=== PATIENT | female | born 1985 | race Caucasian/White ===

== ENCOUNTER → 2019-08-07 10:05 | Outpatient (CLI) | payer OTHER, SELFPAY ==
--- NOTE | 2019-08-07 10:06 | DI.US.S_ITS ---
PROCEDURE: US SOFT TISSUE HEAD AND NECK INDICATIONS: NECK LUMPS TECHNIQUE: Real-time scanning was performed of the neck region of interest, with image documentation. COMPARISON: None. FINDINGS: An area of multiple posterior neck palpable abnormalities, there are multiple lymph nodes including a right superior lymph node measuring 1.5 x 1.0 x 1.4 cm with minimal increased vascularity. Additional right inferior lymph node measuring 1.7 x 0.9 x 1.3 cm demonstrating normal vascularity. Left-sided lymph node measuring 2.6 x 0.8 x 1.9 cm with normal vascularity. All 3 demonstrate no remaining visualized fatty hilum. IMPRESSION: Multiple enlarged lymph nodes in the area of palpable abnormalities, technically non-specific etiology. These could be reactive versus metastatic or inflammatory/granulomatous. Recommend close clinical correlation and management. Dictated by: Cesar Palmer M.D. on 08/07/2019 at 15:53 Approved by: Cesar Palmer M.D. on 08/07/2019 at 15:56
== END ==
PROVIDERS: PCP Nurse Practitioner Family; Referring Provider Nurse Practitioner Family; Visit Provider Nurse Practitioner Family
DX: R59.0 Localized enlarged lymph nodes (principal)
CPT/HCPCS: 76536

== ENCOUNTER → 2019-08-08 10:30 | Outpatient (CLI) | payer OTHER, SELFPAY ==
[2019-08-08 11:09] LABS: Add Manual Diff / Slide Review NO; Basophils Absolute Auto 100 /uL (0-100); Basophils Percent Auto 0.8 % (0-2); Eosinophils Absolute Auto 200 /uL (0-450); Hematocrit 39.3 % (36-46); Hemoglobin 13.4 g/dL (12.0-16.0); Lymphocytes Absolute Auto 3100 /uL (1100-4500); Lymphocytes Percent Auto 24.6 % (25-40); Mean Corpuscular HGB Conc 34.2 % (30-36); Mean Corpuscular Hemoglobin 29.4 PG (26-34); Mean Corpuscular Volume 86.2 fL (80-100); Monocytes Absolute Auto 500 /uL (0-900); Monocytes Percent Auto 3.6 % (3-14); Neutrophils Absolute Auto 8700 /uL (1500-7000); Platelet Count 405 X10^3/uL (150-400); Red Blood Cell Count 4.56 X10^6/uL (4.0-5.2); Red Cell Distribution Width 13.4 % (11.6-14.8); White Blood Cell Count 12.6 X10^3/uL (4.5-11.0)
[2019-08-08 11:39] LABS: Alanine Aminotransferase 62 IU/L (<35); Albumin 3.9 g/dL (3.5-5.0); Albumin Globulin Ratio 1.1 (1.0-2.8); Alkaline Phosphatase 78 U/L (38-126); Aspartate Aminotransferase 30 IU/L (14-36); BUN Creatinine Ratio 21.5 (6-22); Bilirubin Total 0.4 mg/dL (0.2-1.3); Blood Urea Nitrogen 14 mg/dL (7-17); Calcium 9.4 mg/dL (8.4-10.2); Carbon Dioxide 28 mmol/L (22-32); Chloride 100 mmol/L (98-107); Estimated Glomerular Filt Rate > 60.0 mL/min (>60); Globulin 3.6 g/dL (1.7-4.1); Glucose 262 mg/dL (70-100); HEMOLYSIS < 15 (0-50); Potassium 4.4 mmol/L (3.4-5.1); Sodium 134 mmol/L (137-145); Total Protein 7.5 g/dL (6.3-8.2)
[2019-08-09 17:12] LABS: Hemoglobin A1C% w Est Avg Glu 7.6 % (4.0-6.0)
== END ==
PROVIDERS: PCP Nurse Practitioner Family; Referring Provider Nurse Practitioner Family; Visit Provider Nurse Practitioner Family
DX: Z00.00 Encounter for general adult medical examination without abnormal findings (principal); R59.0 Localized enlarged lymph nodes
CPT/HCPCS: 36415; 80053; 83036; 85025

== ENCOUNTER → 2019-08-14 13:32 | Outpatient (CLI) | payer OTHER, SELFPAY ==
--- NOTE | 2019-08-14 13:33 | DI.RAD.S_ITS ---
PROCEDURE: XR CHEST 2V INDICATIONS: lymphadenopathy TECHNIQUE: 2 views of the chest were acquired. COMPARISON: None. FINDINGS: Surgical changes and devices: None. Lungs and pleura: Lungs are clear. No pleural effusions or pneumothorax. Mediastinum: Mediastinal contours are normal. Heart size is normal. Bones and chest wall: No suspicious bony abnormalities. Soft tissues appear unremarkable. IMPRESSION: No evidence acute pulmonary process. Dictated by: Jeb Costello M.D. on 08/14/2019 at 14:02 Approved by: Jeb Costello M.D. on 08/14/2019 at 14:02
--- NOTE | 2019-08-14 13:58 | DI.CT.S_ITS ---
PROCEDURE: CT SOFT TISSUE NECK W CON INDICATIONS: lymphadenopathy TECHNIQUE: After the administration of intravenous contrast, 3.0 mm axial sections acquired from the sella to the aortic arch. Additional oblique axial 3.0 mm sections acquired through the pharynx. 3 mm thick coronal and sagittal reformats were generated. For radiation dose reduction, the following was used: automated exposure control. COMPARISON: None. FINDINGS: Image quality: Excellent. Lymph nodes: Borderline/mildly enlarged bilateral level II and level V cervical lymph nodes. There is symmetric bilateral appearance. Enlarged right suboccipital lymph node noted on image 36/7. Vessels: Visualized vasculature appears patent. Neck spaces: There is bilaterally symmetric appearing mild enlargement of the palatine tonsils. The oropharynx, nasopharynx, and pharynx demonstrate no mucosal lesions. The vocal cords, false vocal cords, pyriform sinuses, epiglottis, vallecula, and tongue base all appear normal. Extramucosal spaces appear unremarkable. Glands: The parotid and submandibular glands appear normal. Thyroid gland negative. Miscellaneous: Visualized brain and orbits appear normal. Lung apices appear clear. Superficial soft tissues appear normal. Bones: No suspicious bony lesions. Visualized sinuses and mastoids appear unremarkable. IMPRESSION: Bilateral borderline/mildly enlarged bilateral level II and level V cervical lymph nodes, with symmetric appearance. Prominent right suboccipital lymph node. Findings are technically nonspecific and age unknown. Please correlate clinically. Recommend clinical management Prominent tonsillar pillar enlargement raising the possibility of acute or inflammatory tonsillitis although recommend clinical correlation and direct visual inspection Dictated by: Cesar Palmer M.D. on 08/14/2019 at 14:02 Approved by: Cesar Palmer M.D. on 08/14/2019 at 14:10
== END ==
PROVIDERS: PCP Nurse Practitioner Family; Referring Provider Nurse Practitioner Family; Visit Provider Nurse Practitioner Family
DX: R59.0 Localized enlarged lymph nodes (principal); J35.1 Hypertrophy of tonsils; R73.9 Hyperglycemia, unspecified
CPT/HCPCS: 70491; 71046; Q9967

== ENCOUNTER → 2019-10-11 11:56 | Outpatient (CLI) | payer OTHER, SELFPAY ==
--- NOTE | 2019-10-11 12:00 | DI.RAD.S_ITS ---
PROCEDURE: XR FINGER RT MIN 2V INDICATIONS: right finger pain, distal joint TECHNIQUE: AP hand, 2 views of the fifth finger(s) acquired. COMPARISON: None. FINDINGS: Bones: No fractures or dislocations. No suspicious bony lesions. Soft tissues: No suspicious soft tissue calcifications. IMPRESSION: Trauma to the fifth digit is not seen. There is no appreciable degenerative change either. Dictated by: Destin Schulte M.D. on 10/11/2019 at 12:53 Approved by: Destin Schulte M.D. on 10/11/2019 at 12:54
== END ==
PROVIDERS: PCP Nurse Practitioner Family; Referring Provider Nurse Practitioner Family; Visit Provider Nurse Practitioner Family
DX: M79.644 Pain in right finger(s) (principal)
CPT/HCPCS: 73140

== ENCOUNTER → 2019-11-16 10:21 | Outpatient (CLI) | payer OTHER, SELFPAY ==
[2019-11-16 10:39] LABS: Add Manual Diff / Slide Review NO; Basophils Absolute Auto 100 /uL (0-100); Basophils Percent Auto 0.7 % (0-2); Eosinophils Absolute Auto 300 /uL (0-450); Eosinophils Percent Auto 2.5 % (2-4); Hematocrit 38.6 % (36-46); Hemoglobin 13.7 g/dL (12.0-16.0); Lymphocytes Absolute Auto 2800 /uL (1100-4500); Lymphocytes Percent Auto 26.3 % (25-40); Mean Corpuscular HGB Conc 35.6 % (30-36); Mean Corpuscular Hemoglobin 30.3 PG (26-34); Mean Corpuscular Volume 85.2 fL (80-100); Monocytes Absolute Auto 400 /uL (0-900); Monocytes Percent Auto 3.5 % (3-14); Neutrophils Absolute Auto 7100 /uL (1500-7000); Platelet Count 422 X10^3/uL (150-400); Red Blood Cell Count 4.53 X10^6/uL (4.0-5.2); Red Cell Distribution Width 13.1 % (11.6-14.8); White Blood Cell Count 10.6 X10^3/uL (4.5-11.0)
[2019-11-16 10:59] LABS: Hemoglobin A1C% w Est Avg Glu 7.4 % (4.0-6.0)
[2019-11-16 11:13] LABS: Erythrocyte Sedimentation Rate 53 MM/HR (0-20)
[2019-11-16 11:32] LABS: Alanine Aminotransferase 51 IU/L (<35); Albumin 3.9 g/dL (3.5-5.0); Albumin Globulin Ratio 1.1 (1.0-2.8); Alkaline Phosphatase 82 U/L (38-126); Aspartate Aminotransferase 33 IU/L (14-36); BUN Creatinine Ratio 26.7 (6-22); Bilirubin Total 0.5 mg/dL (0.2-1.3); Bilirubin Unconjugated 0.4 mg/dL (0.0-1.1); Blood Urea Nitrogen 16 mg/dL (7-17); Calcium 9.7 mg/dL (8.4-10.2); Carbon Dioxide 26 mmol/L (22-32); Chloride 105 mmol/L (98-107); Estimated Glomerular Filt Rate > 60.0 mL/min (>60); Globulin 3.6 g/dL (1.7-4.1); Glucose 171 mg/dL (70-100); HEMOLYSIS < 15 (0-50); Potassium 4.4 mmol/L (3.4-5.1); Sodium 138 mmol/L (137-145); Total Protein 7.5 g/dL (6.3-8.2)
[2019-11-16 11:41] LABS: Rheumatoid Factor < 8.6 IU/mL (<12.0)
[2019-11-20 07:04] LABS: CCP Antibodies IgG/IgA 4 units (0-19)
[2019-11-20 13:09] LABS: ANA Screen, IFA Negative (.)
[2019-11-25 10:08] LABS: HLA B27 Negative (.)
== END ==
PROVIDERS: PCP Nurse Practitioner Family; Referring Provider Nurse Practitioner Family; Visit Provider Nurse Practitioner Family
DX: L40.9 Psoriasis, unspecified (principal); M25.50 Pain in unspecified joint; R74.0 Nonspecific elevation of levels of transaminase and lactic acid dehydrogenase [LDH]; E87.1 Hypo-osmolality and hyponatremia; D72.829 Elevated white blood cell count, unspecified; E11.9 Type 2 diabetes mellitus without complications
CPT/HCPCS: 36415; 80048; 80076; 81374; 83036; 85025; 85651; 86038; 86200; 86430

== ENCOUNTER 2019-12-09 04:05 | Emergency (ER) | payer OTHER, SELFPAY ==
[2019-12-09 04:10] VITALS: BP 161/98; PULSE 110; RESP 20; TEMP 36.6; O2SAT 99; BMI 49.1
--- NOTE | 2019-12-09 04:13 | ED_ITS ---
HPI - General Adult General Chief complaint: Dental/Oral Stated complaint: tonsils are swollen and painful Time Seen by Provider: 12/09/19 04:11 Source: patient Mode of arrival: Ambulatory Limitations: no limitations History of Present Illness HPI narrative: 34-year-old female here for evaluation of a sore throat. States symptoms have been going on for the past 3 days. No fevers. No cough. No problems breathing. His painful for her to swallow but she is able to tolerate secretions. No ear pain. No rashes. Has tried Tylenol and ibuprofen for her symptoms without much improvement. Related Data Home Medications Medication Instructions Recorded Confirmed metformin 500 mg tablet 500 mg PO BID 09/26/18 11/15/19 Previous Rx's Medication Instructions Recorded norethindrone 1 mg-ethinyl 1 tab PO QDAY #168 tab 06/03/19 estradiol 35 mcg tablet clobetasol 0.05 % shampoo 1 applictn TOP DAILY #118 ml 08/27/19 diclofenac sodium 1 % topical gel 2 gram TOP QID #100 gram 11/15/19 azithromycin See Rx Instructions .ROUTE 12/09/19 .COMPLEX #6 tab Allergies Allergy/AdvReac Type Severity Reaction Status Date / Time penicillin G Allergy Mild RASH Verified 12/09/19 04:12 Review of Systems Constitutional Constitutional: Denies fever(s) Eyes Eyes: Denies change in vision ENT Ears, Nose, Mouth, and Throat: Denies change in voice, Denies dental pain, Reports dysphagia, Denies vertigo, Denies dizziness, Denies otalgia, Reports hoarseness, Reports sore throat, Reports throat swelling and Denies tongue swelling Cardiovascular Cardiovascular: Denies dyspnea Respiratory Respiratory: Denies cough and Denies dyspnea Gastrointestinal Gastrointestinal: Reports dysphagia Integumentary/Breasts Skin/Breast: Denies rash Neurologic Neurologic: Denies behavioral changes, Denies vertigo and Denies dizziness Psychiatric Psychiatric: Denies behavioral changes Hematologic/Lymphatic Hematologic/Lymphatic: Denies easy bleeding and Denies easy bruising Allergic/Immunologic Allergic/Immunologic: Reports throat swelling and Denies tongue swelling Patient History Medical History Allergies (Chronic ~2017) Asthma (Chronic) Cervical lymphadenopathy (Acute 10/2018) Chicken pox (Resolved ~1989) Complex cyst of right ovary (Acute) Irregular menstrual cycle (Acute) Joint pain (Acute) Nodule of soft tissue (Acute 10/2018) Pain in right finger(s) (Acute) Type 2 diabetes mellitus (Acute) Surgical History (Updated 10/09/19 @ 19:53 by Brielle Richmond) History of section, low transverse (Resolved ~2012) History of left oophorectomy (Resolved) Status post laparoscopy (06/14/15) Status post laparotomy (01/14/16) Status post ovarian cystectomy (01/14/16) Family History (Updated 10/09/19 @ 19:54 by Brielle Richmond) Father Cancer Hypertension Grandmother Cancer Grandfather Diabetes mellitus Grandmother Cancer Social History Smoking Status: Current every day smoker (06/01-05/30 ppd) Tobacco: How many years used: 20 second hand exposure: Yes (works in a [employer]) alcohol intake: current (2x/month) substance use type: does not use Smoking Status: Current every day smoker (06/01-05/30 ppd) Exam Initial Vital Signs Initial Vital Signs: Vital Signs Temperature 98 F 12/09/19 04:10 Pulse Rate 110 H 12/09/19 04:10 Respiratory Rate 20 12/09/19 04:10 Blood Pressure 161/98 H 12/09/19 04:10 Pulse Oximetry 99 12/09/19 04:10 Const General: cooperative and comfortable Limitations: mental status not altered HENMT Head: normal to inspection and normocephalic Ears: TM's normal bilaterally Nose: external nose normal Face and sinus: normal facial exam Mouth: lip normal, tongue normal, moist mucous membranes, No drooling, malodorous breath and No trismus Teeth and gingiva: dentition normal Throat: uvula midline, abnormal tonsil bilaterally erythema and exudates, no peritonsillar masses, uvula not displaced and no uvular edema Neck Lymphatic: lymphadenopathy Resp Effort & Inspection: normal respiratory effort Auscultation: clear to auscultation bilaterally Cardio Rate: regular rate Rhythm: regular rhythm Skin Lesions: no lesions Rashes: no rashes Extrem General: capillary refill normal Psych Appearance: grossly normal and well kempt Course Orders Ordered: ED Orders 12/09/19 04:15 Throat Culture Stat Discontinued Medications Dexamethasone (Decadron) 16 mg PO NOW ONE Stop: 12/09/19 04:20 Last Admin: 12/09/19 04:29 Dose: 16 mg Documented by: GLADIS Vital Signs Vital signs: Vital Signs - 8 hr 12/09/19 04:10 12/09/19 05:00 12/09/19 05:03 Temperature 98 F Pulse Rate 110 H 72 Respiratory Rate 20 16 Blood Pressure 161/98 H 141/83 H 141/83 H Pulse Oximetry 99 99 Medical Decision Making Lab Data Labs: Point of Care Testing Rapid Strep A Negative Point of care testing: Point of Care Testing Rapid Strep A Negative MDM Narrative Medical decision making narrative: Patient does have 3/4 Centor criteria. She is only lacking a fever. Her rapid strep was negative however her physical exam is consistent with strep throat. She has malodorous breath consistent with strep. Bilateral with right greater than left tonsillar exudates. Had a discussion with her regarding this. A throat culture was obtained. Informed her that we could wait until the throat culture results before treating with any antibiotics. We did discuss that this potentially is a viral infection and would not improve with antibiotics. We also discussed the option of treating her presumptively for strep throat. Downside of this would be is that she received antibiotics that she does not need. Physical exam today is not consistent with a peritonsillar abscess. Low suspicion for retropharyngeal abscess. Dentition is unremarkable. After discussion patient opted to be placed on antibiotics. A prescription was electronically transmitted to the pharmacy of her choice. We discussed return precautions and follow-up instructions. She expressed understanding and agreement. She was also given Decadron for symptom control. Discharge Plan Departure Patient Disposition: Home Clinical Impression: Pharyngitis Qualifiers: Pharyngitis/tonsillitis etiology: unspecified etiology Qualified Code(s): J02.9 - Acute pharyngitis, unspecified Discharge Date/Time: 12/09/19 05:03 Instructions: Sore Throat Activity Restrictions/Additional Instructions: We are treating you today for presumed strep throat. A prescription for antibiotics was electronically transmitted to the [facility] in [place]. You can take Tylenol and/or ibuprofen for any discomfort or fevers.. Recommend soft diet and drink plenty of fluids. Recommend that you wash her hands frequently. Keep all of your scheduled medical appointments. Return to the emergency d epartment for any new or worsening symptoms Prescriptions: New azithromycin 250 mg tablet See Rx Instructions .ROUTE .COMPLEX Qty: 6 RF: 0 No Action [facility]o-Novum () 1-35 mg-mcg tablet 1 tab PO QDAY Qty: 168 RF: 0 metformin 500 mg tablet 500 mg PO BID RF: 0 clobetasol 0.05 % shampoo 1 applictn TOP DAILY Qty: 118 RF: 1 diclofenac sodium 1 % gel 2 gram TOP QID Qty: 100 RF: 0 Referrals: Manjit Hudson ARNP [Primary Care Provider] -
[2019-12-09] MEDS: dexAMETHasone 4 MG TABLET 16 MG PO (04:29)
[2019-12-09 05:00] VITALS: BP 141/83; PULSE 72; RESP 16; O2SAT 99
[2019-12-09 05:03] VITALS: BP 141/83
== END 2019-12-09 05:03 | disposition home or self-care (01) ==
PROVIDERS: Emergency Provider Emergency Medicine; PCP Nurse Practitioner Family
DX: J02.9 Acute pharyngitis, unspecified (principal)
CPT/HCPCS: 87070; 87077; 87147; 87880; 99283

== ENCOUNTER → 2019-12-11 15:12 | Outpatient (CLI) | payer OTHER, SELFPAY ==
[2019-12-11 15:36] LABS: Add Manual Diff / Slide Review NO; Basophils Absolute Auto 100 /uL (0-100); Eosinophils Absolute Auto 300 /uL (0-450); Eosinophils Percent Auto 2.8 % (2-4); Hemoglobin 12.2 g/dL (12.0-16.0); Lymphocytes Absolute Auto 4200 /uL (1100-4500); Lymphocytes Percent Auto 34.1 % (25-40); Mean Corpuscular Hemoglobin 29.1 PG (26-34); Mean Corpuscular Volume 85.7 fL (80-100); Monocytes Absolute Auto 600 /uL (0-900); Monocytes Percent Auto 4.7 % (3-14); Neutrophils Absolute Auto 7000 /uL (1500-7000); Neutrophils Percent Auto 57.4 % (50-75); Platelet Count 485 X10^3/uL (150-400); White Blood Cell Count 12.2 X10^3/uL (4.5-11.0)
[2019-12-11 15:53] LABS: Alanine Aminotransferase 23 IU/L (<35); Albumin 3.8 g/dL (3.5-5.0); Alkaline Phosphatase 79 U/L (38-126); Aspartate Aminotransferase 19 IU/L (14-36); BUN Creatinine Ratio 35.5 (6-22); Bilirubin Total 0.4 mg/dL (0.2-1.3); Blood Urea Nitrogen 22 mg/dL (7-17); C-Reactive Protein Quant 6.4 mg/dL (<1.0); Calcium 9.1 mg/dL (8.4-10.2); Carbon Dioxide 27 mmol/L (22-32); Chloride 103 mmol/L (98-107); Estimated Glomerular Filt Rate > 60.0 mL/min (>60); Globulin 3.8 g/dL (1.7-4.1); Glucose 168 mg/dL (70-100); HEMOLYSIS < 15 (0-50); Potassium 3.8 mmol/L (3.4-5.1); Sodium 136 mmol/L (137-145); Total Protein 7.6 g/dL (6.3-8.2)
[2019-12-11 15:56] LABS: Erythrocyte Sedimentation Rate 67 MM/HR (0-20)
== END ==
PROVIDERS: PCP Nurse Practitioner Family; Referring Provider Nurse Practitioner Family; Visit Provider Nurse Practitioner Family
DX: Z00.00 Encounter for general adult medical examination without abnormal findings (principal); D72.829 Elevated white blood cell count, unspecified; R70.0 Elevated erythrocyte sedimentation rate; R79.82 Elevated C-reactive protein (CRP)
CPT/HCPCS: 36415; 80053; 85025; 85651; 86140

== ENCOUNTER → 2020-01-05 15:14 | Outpatient (CLI) | payer OTHER, SELFPAY ==
[2020-01-06 23:07] LABS: COVID19 Sendout Not Detected (Not Detect)
== END ==
PROVIDERS: PCP Nurse Practitioner Family; Visit Provider Physician Assistant
DX: Z11.59 Encounter for screening for other viral diseases (principal)
CPT/HCPCS: 87635

== ENCOUNTER 2020-01-08 09:45 | Day surgery (SDC) | payer OTHER, SELFPAY ==
[2020-01-03 09:41] VITALS: BMI 49.1
[2020-01-08] VITALS (8 sets, daily range): BP systolic 95–125; BP diastolic 54–82; PULSE 66–90; RESP 12–16; TEMP 35.7–36.8; O2SAT 94–99; BMI 49.1
--- NOTE | 2020-01-08 | PATH_ITS ---
[facility] Accession Number: [id number] . 01 Material submitted: . lymph node - CERVICAL LYMPH NODE . 01 Diagnosis: Cervical Lymph Node, Excision: Benign lymph node with reactive hyperplasia, see microscopic description. Negative for Hodgkin or non-Hodgkin lymphoma. Negative for carcinoma. [facility] 01/15/2020 1437 Local . 01 Comment: Reactive paracortical hyperplasia is a non-specific finding and is often associated with viral infection (EBV, CMV, etc.). It is also associated with drug/vaccine reaction and also seen in association with dermatopathic lymphadenopathy, etc. There is no evidence of malignancy. . Clinical correlation and also correlation with additional (if any) laboratory tests also recommended. . As part of ongoing quality process engineer, this case was also reviewed by Dr. Cynthia Douglas, who agrees with the interpretation. . 01 Electronically signed: . Oc Mccracken MD, Pathologist NPI- [id number] . 01 Gross description: . Received in formalin, labeled with the patient's name, MRN and cervical lymph node, is a 1.2 cm in greatest dimension yellow-rojas fatty possible lymph node. The specimen is serially sectioned and entirely submitted in cassette A1. (SD/cmc10 [id number]) /MRV 01/09/2020 1042 Local . 01 Microscopic: . Microscopic examination of the lymph node reveals reactive changes in the form of predominantly paracortical hyperplasia and to a lesser extent, follicular and sinusoidal hyperplasia. Follicular hyperplasia with reactive germinal centers are noted and expansion of paracortical areas with mixed lymphoid infiltrates composed of small and larger lymphocytes (immumoblasts), admixed with plasma cells, eosinophils, neutrophils, and histiocytes. . Well-formed granulomas are not appreciated. . To better evaluate the lymphocyte composition, a panel of immunostains is performed with the following results: . CD3: T-lymphocytes positive. CD5: T-lymphocytes positive (negative for aberrant coexpression on the B-lymphocytes). CD20: B-lymphocytes positive. CD23: Follicular dendritic cells positive. BCL2: T-lymphocytes positive. Negative for aberrant coexpression on the B-lymphocytes. Negative for germinal center positivity. BCL6: Lymphoid follicles positive. Ki-67: Low (High within the reactive germinal centers). Cyclin D1: Negative for aberrant coexpression on the B-lymphocytes. CD30: Immunoblast cell positivity. Negative for Hodgkin cells. CD15: Myeloid cells positive. Negative for Hodgkin cells. [place] light chain immunostain: Subset of plasma cells positive. Lambda light chain immunostain: Subset of plasma cell positive ([place] and lambda light chain immunostains support polyclonal/reactive plasma cells). KADEEM In situ hybridization: Lymphocytes are negative for EBV by chromogenic EBER1 in situ hybridization (with adequate internal U6 RNA controls). . Overall, immunostains support normal preserved architecture and normal distribution of T and B-lymphocytes without aberrant antigen expression. . In addition, concurrent flow cytometry performed on the specimen revealed no abnormal B-cell or T-cell population (see report [id number]) for details. . * This test was developed and its performance characteristics determined by [facility]. It has not been cleared or approved by the U.S. Food and Drug Administration. The FDA has determined that such clearance or approval is not necessary. This test is used for clinical purposes. It should not be regarded as investigational or for research. . 01 Pathologist provided ICD-10: R59.0 . 01 CPT . 023360, O91012, T18612, C93409 Performed at: 01 [facility] [address] [place] [address], [place], [place] [id number] MD Prem Cosme MD Phone: [phone]
[2020-01-08] MEDS: LACTATED RINGERS 1,000 ML 100 ML IV (10:31)
--- NOTE | 2020-01-08 12:17 | PM.PREOP ---
Pre-operative Note COVID-19 COVID-19 status: Negative Result date/Date tested (Pos, Neg/Pending): 01/05/20 Interval Note History & Physical reviewed/Exam performed by Physician: Yes Changes to H&P: No
[2020-01-08] MEDS: CLINDAMYCIN 900 MG/50 ML PIGGYBACK 50 MG IV (12:36)
--- NOTE | 2020-01-08 12:59 | SUR.OPER ---
Lateral on padded OR bed on hutchison bag, head on pillow, gel axillary roll in place, bottom leg bent with gel pad under knee to foot, upper leg straight and supported with pillows. Upper arm supported by pillows and secured over bottom arm to padded arm board. Safety belt at hip, tape over blanket lower legs.
[2020-01-08] MEDS: BUPIVACAINE 0.25% W/ EPI 30 ML VIAL INJ (13:06)
--- NOTE | 2020-01-08 13:33 | P.OP_ITS ---
Operative Date/Time/Diagnoses Date of procedure: 01/08/20 Time of procedure: 13:33 Pre-op diagnosis: cervical lymphadenopathy Post-op diagnosis: same Procedure & Clinicians Procedure: Excision of cervical lymph node from the right posterior neck Same procedure as scheduled: Yes Indications: Cervical lymphadenopathy Surgeon: Penelope Peña Yes if Unassisted: Yes Anesthesia Type: General Operative Notes Findings: Enlarged cervical lymph node Specimen(s): other (Lymph node, 1/2 put in formalin, 1/2 bivalved input in RPMI solution) Estimated Blood Loss (mL): 1 Blood products transfused: none Procedure in detail: Patient was placed in left lateral decubitus position on th e operating room table and underwent general LMA anesthesia. A beanbag was used to position the patient and all bony prominences were padded. The posterior neck was prepped and draped in the usual sterile fashion 0.25% Marcaine with epi was used to infiltrate the skin overlying the palpable lymph node. A 3 cm transverse incision was then made in the skin on the right posterior neck in the area of anesthetic infiltration, overlying the palpable node. Dissection was carried down through the dermis and subcutaneous fat until the enlarged lymph node was reached. The node was dissected from the surrounding fat tissue and vessels and lymphatics going to the node were controlled. The node was removed from the wound, bivalved, and placed 1/2 in formalin and 1/2 bilvalved again and placed in two vials of RPMI. Hemostasis was achieved using cautery, and another 10mL of local anesthetic was used to infiltrate the skin and subcutaneous tissue. The skin was then closed with 3-0 Vicryl and 4-0 Monocryl, and the skin incision was sealed with Dermabond. This concluded the procedure and the patient was awakened from anesthesia and transferred to the postanesthesia care unit in stable condition. Needle sponge and instrument counts were correct x2 at the end of the case. The patient tolerated the procedure well and was transferred to the PACU in stable condition. Complications: none Post-operative Condition: stable Disposition: PACU
--- NOTE | 2020-01-08 14:32 | SUR.PHASEII ---
Pt ambulating gait steady, taking po fluids, dressed now, walked to br and voiding without problems. All dc instructions given by Marck and pt verbalizes understanding. Waiting for ride in ready to go
--- NOTE | 2020-01-08 15:35 | SUR.PHASEII ---
1440-Pt dcd via wc to private vehicle at [facility] in stable condition.
== END 2020-01-08 14:40 | disposition home or self-care (01) ==
PROVIDERS: PCP Nurse Practitioner Family; Referring Provider Surgery; Visit Provider Surgery
PROC: (CPT 38510; principal; 2020-01-08 11:30)
DX: R59.0 Localized enlarged lymph nodes (principal); E66.01 Morbid (severe) obesity due to excess calories; E11.9 Type 2 diabetes mellitus without complications; F17.210 Nicotine dependence, cigarettes, uncomplicated; Z79.84 Long term (current) use of oral hypoglycemic drugs; L40.9 Psoriasis, unspecified
CPT/HCPCS: 38510; J2704; J3010

== ENCOUNTER → 2021-03-08 07:11 | Outpatient (CLI) | payer OTHER, SELFPAY ==
[2021-03-08 08:03] LABS: Add Manual Diff / Slide Review NO; Basophils Absolute Auto 100 /uL (0-100); Basophils Percent Auto 0.7 % (0-2); Eosinophils Absolute Auto 200 /uL (0-450); Eosinophils Percent Auto 2.6 % (2-4); Hematocrit 41.5 % (36-46); Lymphocytes Absolute Auto 3100 /uL (1100-4500); Lymphocytes Percent Auto 32.4 % (25-40); Mean Corpuscular HGB Conc 33.7 % (30-36); Mean Corpuscular Hemoglobin 28.6 PG (26-34); Monocytes Absolute Auto 400 /uL (0-900); Monocytes Percent Auto 4.3 % (3-14); Neutrophils Absolute Auto 5700 /uL (1500-7000); Platelet Count 406 X10^3/uL (150-400); Red Blood Cell Count 4.88 X10^6/uL (4.0-5.2); Red Cell Distribution Width 13.3 % (11.6-14.8); White Blood Cell Count 9.5 X10^3/uL (4.5-11.0)
[2021-03-08 08:17] LABS: Hemoglobin A1C% w Est Avg Glu 11.7 % (4.0-6.0)
[2021-03-08 08:25] LABS: Alanine Aminotransferase 89 IU/L (<35); Albumin 4.1 g/dL (3.5-5.0); Albumin Globulin Ratio 1.2 (1.0-2.8); Alkaline Phosphatase 95 U/L (38-126); Aspartate Aminotransferase 39 IU/L (14-36); BUN Creatinine Ratio 32.5 (6-22); Bilirubin Total 0.4 mg/dL (0.2-1.3); Blood Urea Nitrogen 13 mg/dL (7-17); C-Reactive Protein Quant 5.1 mg/dL (<1.0); Calcium 9.4 mg/dL (8.4-10.2); Carbon Dioxide 26 mmol/L (22-32); Chloride 100 mmol/L (98-107); Cholesterol 190 mg/dL (140-199); Estimated Glomerular Filt Rate > 60.0 mL/min (>60); Globulin 3.5 g/dL (1.7-4.1); Glucose 296 mg/dL (70-100); HDL Cholesterol 47 mg/dL (40-60); HEMOLYSIS < 15 (0-50); LDL Cholesterol Calculated 122 mg/dL (<100); Potassium 4.4 mmol/L (3.4-5.1); Sodium 134 mmol/L (137-145); Total Protein 7.6 g/dL (6.3-8.2); Triglycerides 103 mg/dL (35-150)
[2021-03-08 08:42] LABS: Erythrocyte Sedimentation Rate 42 MM/HR (0-20)
== END ==
PROVIDERS: PCP Nurse Practitioner Family; Referring Provider Specialist/Technologist Athletic Trainer; Visit Provider Specialist/Technologist Athletic Trainer
DX: L40.50 Arthropathic psoriasis, unspecified (principal); E11.65 Type 2 diabetes mellitus with hyperglycemia; R73.03 Prediabetes
CPT/HCPCS: 36415; 80053; 80061; 83036; 85025; 85651; 86140

== ENCOUNTER → 2021-04-12 07:13 | Outpatient (CLI) | payer OTHER, SELFPAY ==
[2021-04-12 07:59] LABS: BUN Creatinine Ratio 43.2 (6-22); Blood Urea Nitrogen 19 mg/dL (7-17); Calcium 9.6 mg/dL (8.4-10.2); Carbon Dioxide 26 mmol/L (22-32); Chloride 101 mmol/L (98-107); Estimated Glomerular Filt Rate > 60.0 mL/min (>60); Glucose 219 mg/dL (70-100); HEMOLYSIS < 15 (0-50); Potassium 4.6 mmol/L (3.4-5.1); Sodium 136 mmol/L (137-145)
== END ==
PROVIDERS: PCP Nurse Practitioner Family; Referring Provider Nurse Practitioner Family; Visit Provider Nurse Practitioner Family
DX: I10 Essential (primary) hypertension (principal)
CPT/HCPCS: 36415; 80048

== ENCOUNTER → 2021-06-14 09:55 | Outpatient (CLI) | payer OTHER, SELFPAY ==
[2021-06-14 10:51] LABS: Hematocrit 38.3 % (36-46); Hemoglobin 13.5 g/dL (12.0-16.0); Mean Corpuscular HGB Conc 35.1 % (30-36); Mean Corpuscular Hemoglobin 29.7 PG (26-34); Mean Corpuscular Volume 84.5 fL (80-100); Platelet Count 453 X10^3/uL (150-400); Red Blood Cell Count 4.54 X10^6/uL (4.0-5.2); Red Cell Distribution Width 13.8 % (11.6-14.8); White Blood Cell Count 9.3 X10^3/uL (4.5-11.0)
[2021-06-14 11:10] LABS: Hemoglobin A1C% w Est Avg Glu 10.6 % (4.0-6.0)
[2021-06-14 11:13] LABS: Alanine Aminotransferase 51 IU/L (<35); Albumin Globulin Ratio 1.1 (1.0-2.8); Alkaline Phosphatase 90 U/L (38-126); Aspartate Aminotransferase 28 IU/L (14-36); BUN Creatinine Ratio 46.3 (6-22); Bilirubin Total 0.7 mg/dL (0.2-1.3); Blood Urea Nitrogen 19 mg/dL (7-17); Calcium 9.1 mg/dL (8.4-10.2); Carbon Dioxide 28 mmol/L (22-32); Chloride 101 mmol/L (98-107); Cholesterol 191 mg/dL (140-199); Estimated Glomerular Filt Rate > 60.0 mL/min (>60); Globulin 3.8 g/dL (1.7-4.1); Glucose 281 mg/dL (70-100); HDL Cholesterol 44 mg/dL (40-60); HEMOLYSIS < 15 (0-50); LDL Cholesterol Calculated 130 mg/dL (<100); Potassium 4.3 mmol/L (3.4-5.1); Sodium 133 mmol/L (137-145); Total Protein 7.8 g/dL (6.3-8.2); Triglycerides 86 mg/dL (35-150)
[2021-06-14 13:22] LABS: TSH w/ Reflex to FT4 0.96 uIU/mL (0.47-4.68)
== END ==
PROVIDERS: PCP Nurse Practitioner Family; Referring Provider Nurse Practitioner Family; Visit Provider Nurse Practitioner Family
DX: E11.65 Type 2 diabetes mellitus with hyperglycemia (principal); F41.9 Anxiety disorder, unspecified; I10 Essential (primary) hypertension; Z00.00 Encounter for general adult medical examination without abnormal findings; Z13.6 Encounter for screening for cardiovascular disorders
CPT/HCPCS: 36415; 80053; 80061; 83036; 84443; 85027

== ENCOUNTER → 2021-07-14 09:36 | Outpatient (CLI) | payer OTHER, SELFPAY ==
[2021-07-14 11:33] LABS: Add Manual Diff / Slide Review NO; Basophils Absolute Auto 100 /uL (0-100); Basophils Percent Auto 1.1 % (0-2); Eosinophils Absolute Auto 400 /uL (0-450); Eosinophils Percent Auto 4.6 % (2-4); Hematocrit 40.3 % (36-46); Hemoglobin 13.9 g/dL (12.0-16.0); Lymphocytes Absolute Auto 2300 /uL (1100-4500); Lymphocytes Percent Auto 28.1 % (25-40); Mean Corpuscular HGB Conc 34.5 % (30-36); Mean Corpuscular Hemoglobin 29.5 PG (26-34); Mean Corpuscular Volume 85.5 fL (80-100); Monocytes Absolute Auto 300 /uL (0-900); Monocytes Percent Auto 4.3 % (3-14); Neutrophils Absolute Auto 5000 /uL (1500-7000); Neutrophils Percent Auto 61.9 % (50-75); Platelet Count 453 X10^3/uL (150-400); Red Blood Cell Count 4.71 X10^6/uL (4.0-5.2); White Blood Cell Count 8.1 X10^3/uL (4.5-11.0)
[2021-07-14 12:08] LABS: Erythrocyte Sedimentation Rate 29 MM/HR (0-20)
[2021-07-14 12:13] LABS: Alanine Aminotransferase 67 IU/L (<35); Albumin Globulin Ratio 1.1 (1.0-2.8); Alkaline Phosphatase 96 U/L (38-126); Aspartate Aminotransferase 33 IU/L (14-36); BUN Creatinine Ratio 26.9 (6-22); Bilirubin Total 0.5 mg/dL (0.2-1.3); Blood Urea Nitrogen 14 mg/dL (7-17); C-Reactive Protein Quant 3.7 mg/dL (<1.0); Calcium 9.8 mg/dL (8.4-10.2); Carbon Dioxide 27 mmol/L (22-32); Chloride 104 mmol/L (98-107); Estimated Glomerular Filt Rate > 60.0 mL/min (>60); Globulin 3.7 g/dL (1.7-4.1); Glucose 220 mg/dL (70-100); HEMOLYSIS < 15 (0-50); Potassium 4.6 mmol/L (3.4-5.1); Sodium 137 mmol/L (137-145); Total Protein 7.7 g/dL (6.3-8.2); Uric Acid 1.5 mg/dL (2.5-6.2)
== END ==
PROVIDERS: PCP Nurse Practitioner Family; Referring Provider Specialist/Technologist Athletic Trainer; Visit Provider Specialist/Technologist Athletic Trainer
DX: L40.50 Arthropathic psoriasis, unspecified (principal); M46.90 Unspecified inflammatory spondylopathy, site unspecified; D84.9 Immunodeficiency, unspecified
CPT/HCPCS: 36415; 80053; 84550; 85025; 85651; 86140

== ENCOUNTER → 2021-10-12 07:17 | Outpatient (CLI) | payer OTHER, SELFPAY ==
[2021-10-12 08:24] LABS: Hematocrit 39.5 % (36-46); Hemoglobin 13.5 g/dL (12.0-16.0); Mean Corpuscular HGB Conc 34.2 % (30-36); Mean Corpuscular Hemoglobin 28.9 PG (26-34); Mean Corpuscular Volume 84.6 fL (80-100); Platelet Count 368 X10^3/uL (150-400); Red Blood Cell Count 4.67 X10^6/uL (4.0-5.2); Red Cell Distribution Width 13.7 % (11.6-14.8); White Blood Cell Count 9.1 X10^3/uL (4.5-11.0)
[2021-10-12 08:31] LABS: Hemoglobin A1C% w Est Avg Glu 9.7 % (4.0-6.0)
[2021-10-12 08:36] LABS: Alanine Aminotransferase 88 IU/L (<35); Albumin 3.8 g/dL (3.5-5.0); Albumin Globulin Ratio 1.1 (1.0-2.8); Alkaline Phosphatase 82 U/L (38-126); Aspartate Aminotransferase 42 IU/L (14-36); BUN Creatinine Ratio 26.4 (6-22); Bilirubin Total 0.3 mg/dL (0.2-1.3); Blood Urea Nitrogen 14 mg/dL (7-17); Calcium 9.3 mg/dL (8.4-10.2); Carbon Dioxide 28 mmol/L (22-32); Chloride 102 mmol/L (98-107); Estimated Glomerular Filt Rate > 60 mL/min (>60); Globulin 3.4 g/dL (1.7-4.1); Glucose 167 mg/dL (70-100); HEMOLYSIS < 15 (0-50); Potassium 4.7 mmol/L (3.4-5.1); Sodium 138 mmol/L (137-145); Total Protein 7.2 g/dL (6.3-8.2)
== END ==
PROVIDERS: PCP Registered Nurse Diabetes Educator; Referring Provider Nurse Practitioner Family; Visit Provider Nurse Practitioner Family
DX: Z00.00 Encounter for general adult medical examination without abnormal findings (principal); E11.65 Type 2 diabetes mellitus with hyperglycemia
CPT/HCPCS: 36415; 80053; 83036; 85027

== ENCOUNTER → 2021-11-22 07:18 | Outpatient (CLI) | payer OTHER, SELFPAY ==
[2021-11-22 08:15] LABS: Hemoglobin A1C% w Est Avg Glu 8.6 % (4.0-6.0)
[2021-11-22 08:32] LABS: Alanine Aminotransferase 67 IU/L (<35); Albumin 3.8 g/dL (3.5-5.0); Albumin Globulin Ratio 1.1 (1.0-2.8); Alkaline Phosphatase 70 U/L (38-126); Aspartate Aminotransferase 45 IU/L (14-36); Bilirubin Total 0.4 mg/dL (0.2-1.3); Bilirubin Unconjugated 0.4 mg/dL (0.0-1.1); Globulin 3.6 g/dL (1.7-4.1); HEMOLYSIS < 15 (0-50); Total Protein 7.4 g/dL (6.3-8.2)
== END ==
PROVIDERS: PCP Registered Nurse Diabetes Educator; Referring Provider Registered Nurse Diabetes Educator; Visit Provider Registered Nurse Diabetes Educator
DX: E11.65 Type 2 diabetes mellitus with hyperglycemia (principal); R74.8 Abnormal levels of other serum enzymes
CPT/HCPCS: 36415; 80076; 83036

== ENCOUNTER → 2022-03-28 07:10 | Outpatient (CLI) | payer OTHER, SELFPAY ==
[2022-03-28 07:46] LABS: Hemoglobin A1C% w Est Avg Glu 6.2 % (4.0-6.0)
[2022-03-28 07:53] LABS: Alanine Aminotransferase 20 IU/L (<35); Albumin 3.6 g/dL (3.5-5.0); Alkaline Phosphatase 71 U/L (38-126); Aspartate Aminotransferase 14 IU/L (14-36); Bilirubin Total 0.4 mg/dL (0.2-1.3); Bilirubin Unconjugated 0.4 mg/dL (0.0-1.1); Globulin 3.7 g/dL (1.7-4.1); HEMOLYSIS < 15 (0-50); Total Protein 7.3 g/dL (6.3-8.2)
== END ==
PROVIDERS: PCP Registered Nurse Diabetes Educator; Referring Provider Registered Nurse Diabetes Educator; Visit Provider Registered Nurse Diabetes Educator
DX: E11.65 Type 2 diabetes mellitus with hyperglycemia (principal); K76.0 Fatty (change of) liver, not elsewhere classified
CPT/HCPCS: 36415; 80076; 83036

== ENCOUNTER → 2022-04-25 07:20 | Outpatient (CLI) | payer OTHER, SELFPAY ==
[2022-04-25 08:31] LABS: Add Manual Diff / Slide Review NO; Basophils Absolute Auto 100 /uL (0-100); Basophils Percent Auto 0.7 % (0-2); Eosinophils Absolute Auto 500 /uL (0-450); Eosinophils Percent Auto 4.2 % (2-4); Hematocrit 40.1 % (36-46); Hemoglobin 13.7 g/dL (12.0-16.0); Lymphocytes Absolute Auto 3300 /uL (1100-4500); Lymphocytes Percent Auto 30.5 % (25-40); Mean Corpuscular HGB Conc 34.1 % (30-36); Mean Corpuscular Hemoglobin 28.6 PG (26-34); Mean Corpuscular Volume 83.8 fL (80-100); Monocytes Absolute Auto 600 /uL (0-900); Monocytes Percent Auto 5.5 % (3-14); Neutrophils Absolute Auto 6400 /uL (1500-7000); Neutrophils Percent Auto 59.1 % (50-75); Platelet Count 452 X10^3/uL (150-400); Red Blood Cell Count 4.79 X10^6/uL (4.0-5.2); Red Cell Distribution Width 14.2 % (11.6-14.8); White Blood Cell Count 10.9 X10^3/uL (4.5-11.0)
[2022-04-25 09:09] LABS: Erythrocyte Sedimentation Rate 37 MM/HR (0-20)
[2022-04-25 09:44] LABS: Alanine Aminotransferase 21 IU/L (<35); Albumin 3.8 g/dL (3.5-5.0); Albumin Globulin Ratio 1.1 (1.0-2.8); Alkaline Phosphatase 74 U/L (38-126); Aspartate Aminotransferase 15 IU/L (14-36); BUN Creatinine Ratio 39.3 (6-22); Bilirubin Total 0.5 mg/dL (0.2-1.3); Blood Urea Nitrogen 22 mg/dL (7-17); C-Reactive Protein Quant 2.6 mg/dL (<1.0); Calcium 9.4 mg/dL (8.4-10.2); Carbon Dioxide 27 mmol/L (22-32); Chloride 100 mmol/L (98-107); Estimated Glomerular Filt Rate > 60 mL/min (>60); Globulin 3.6 g/dL (1.7-4.1); Glucose 111 mg/dL (70-100); HEMOLYSIS < 15 (0-50); Potassium 4.6 mmol/L (3.4-5.1); Sodium 136 mmol/L (137-145); Total Protein 7.4 g/dL (6.3-8.2)
== END ==
PROVIDERS: PCP Registered Nurse Diabetes Educator; Referring Provider Specialist/Technologist Athletic Trainer; Visit Provider Specialist/Technologist Athletic Trainer
DX: L40.50 Arthropathic psoriasis, unspecified (principal); L40.9 Psoriasis, unspecified; D84.9 Immunodeficiency, unspecified
CPT/HCPCS: 36415; 80053; 85025; 85651; 86140

== ENCOUNTER → 2022-06-01 11:21 | Outpatient (CLI) | payer OTHER, SELFPAY ==
--- NOTE | 2022-06-08 17:00 | DIAB.MNT ---
Initial Diabetes Medical Nutrition Therapy Assessment Name: Lupe Ruth Date: 06/01/22 Time: 8860a-1230p Dx: Type II Diabetes Provider: Isai Lupe presents for initial visit regarding T2DM. Endorses PMH of DM for 4 years. Also endorses h/o GDM with daughter in 2012 (born 10#). Only FH of DM reported is paternal grandfather. Father passed in 2009 and she is unsure of if he had DM. 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 Though her HgA1c is <7% she feels that it is solely the medications managing BG. States she has not made any lifestyle changes. States she is unclear if she can have any CHO? When to check BG? Reports she struggles with diet r/t both her work schedule and finances. Would like to make changes to reduce medication needs. h/o weight loss program 8 years ago, which she felt was unsuccessful. Recent DM symptoms include blurry vision. Since meds has improved excessive urination and thirst. With the help of her therapist she is trying to only eat at the dinning table when home. Reports eating in front of the TV distracted has been historically a concern. Motivation includes wanting to be a good role model with food relationship with her daughter. Reports limited hope that she will be successful in diet changes, but would like to be. Diet Recall: Work days: 8a: bulgarian muffin with PB, coffee with cream and 4 pkt sugar 11a: grilled cheese or burger or tuna sandwich with chips, candy bar and soda 7p: 2 breadsticks and 6oz soda diet or reg 11p: pasta with meat sauce x 2-3c Days off: 9-10a: cereal (corn flakes or cheerios) OR 4 eggo waffles with syrup OR fast food: 2 breakfast sandwiches with OJ sleep 6-7pm: shake n bake chx, most of a box of stuffing, broccoli, 4 slices of canned peaches or pears OR fast food: 10 piece chx nuggets, double hitesh burger, large diet coke OR pizza x 2-3 slices with soda Evening grazing: candy, bala chip cookies, cheese and vanilla wafers. Beverages: diet soda, reg soda, water x 128-192oz Anthropometrics: Ht: 65 Wt: 280# reported Weight history: reports 320# 2 years ago. Physical Activity: walks a lot at work. No intentional program currently. Self-Monitoring Blood Glucose: None currently. Was checking a few months ago. States most FBG were 90-130 mg/dL. Reports h/o feeling shaky with n/v when she would not eat for extended times running errands on days off. Denies any BG <70. Diabetes Medications: 4.5mg Trulicity per week 10mg Jardiance per dday 1000mg Metformin BID Pertinent Labs: HgA1c: 02/2022: 6.2% 10/2021: 8.6% 09/2021: 9.7% Past Medical History: (Last Updated 04/01/22 @ 16:52 by CHADWICK Guillaume) Abnormal cervical Papanicolaou smear (2018) Allergies (~2017) Asthma BMI 45.0-49.9, adult Cervical lymphadenopathy (10/2018) related to scalp psoriasis Chicken pox (~1989) Complex cyst of right ovary Diabetes mellitus type 2, controlled, without complications Elevated liver enzymes Rheumatology believes this is related to the [facility] Essential hypertension Fibromyalgia GERD (gastroesophageal reflux disease) Irregular menstrual cycle Joint pain Nonalcoholic fatty liver disease (05/2020) Pain in right finger(s) Poorly controlled diabetes mellitus Psoriasis of scalp Severe Psoriatic arthritis Hands Type 2 diabetes mellitus Nutrition Rx: Plate Method Nutrition Diagnosis: - Excessive CHO intake r/t nutrition knowledge deficit and extended times of fasting resulting in large portinos aeb diet recall and pt report - Limited access to food r/t finances aeb pt report - Self monitoring deficit r/t no SMBG aeb pt report - Excessive fluids intake r/t excessive thirst aeb diet recall of 4+ liters of water per day Intervention: This participant was very receptive. Provided appropriate educational handouts. Discussed the following topics: Importance of self-monitoring, how often, and when to check. Suggested checking at different times to evaluate meals Plate Method, meal timing, pairing macronutrients and spreading out carbohydrates for better blood glucose management Recommended servings for carbohydrates at meals and snacks Carb recs and label reading Setting achievable goals Making small changes for success Created SMART goals for patient self-care and success. Goals: Check out sk[employer] gle[employer] try water at 11am break instead of soda move candy bar to afternoon if having Eat q 3-5 hours Check BG: FBG and or 1-2 hr pc Follow-up: [facility] follow-up in 3-4 weeks Rea Ivey RDN, CLAUDY Certified Diabetes Care and Claims Counsel P: [phone] Thank you for this referral
== END ==
PROVIDERS: PCP Registered Nurse Diabetes Educator; Referring Provider Registered Nurse Diabetes Educator; Visit Provider Registered Nurse Diabetes Educator
DX: E11.9 Type 2 diabetes mellitus without complications (principal); Z79.84 Long term (current) use of oral hypoglycemic drugs; Z79.85 Long-term (current) use of injectable non-insulin antidiabetic drugs; Z71.3 Dietary counseling and surveillance
CPT/HCPCS: 97802

== ENCOUNTER → 2022-06-24 12:47 | Outpatient (CLI) | payer OTHER, SELFPAY ==
--- NOTE | 2022-07-12 17:17 | DIAB.MNTFU ---
Follow-up Diabetes Medical Nutrition Therapy Assessment Name: Lupe Ruth Date: 06/24/22 Time: 1-2p Dx: Type II Diabetes Provider: Isai Andrade presents for follow-up DM visit. Reports decreasing soda intake, eats Special K protein bars between jobs to prevent overeating?later, has not eaten pasta after work since eating protein bars, is avoiding fast food (chose a sandwich over [employer]), and is trying to not use [employer] to save money and kcal intake. Aiming for more frequent small meals. Cut out candy bar at lunch. States she sometimes consumes gallon of milk in 24 hrs, usually 20-24 oz in one sitting. Reduced recently. Reports confidence has increased since last visit about weight management self-efficacy, however, does have good and bad days. Medication: Has not been taking Trulicity for past 2 wks due to unavailability. Glucose numbers have stayed stable since discontinuing.?States she is interested in reducing medication. Did discuss benefits of satiety and weight loss with GLP1 RA meds. Though promising to see BG in goal range despite not taking GLP1. Encouraged her to discuss potential for reduced DM meds with PCP. Diet Recall: B: (7:30-8) egg, sausage, tortilla OR icelandic muffin with PB OR croissant with ham and cheese L: (11-12) sandwich? 5 pm: Special K protein bar 7:30: bread stick from [employer] [place] [employer]? 11 pm: nothing or a few bites of soup from [employer] [place] [employer] Anthropometrics: Ht: 65 Wt: 280# reported Weight history: reports 320# 2 years ago. Physical Activity: walks a lot at work. No intentional program currently. Self-Monitoring Blood Glucose: reports FBG 100-115mg/dl and pc readings 130-140mg/dl. Denies recent dizzy spells or low BG. Diabetes Medications: 4.5mg Trulicity per week 10mg Jardiance per day 1000mg Metformin BID Pertinent Labs: HgA1c: 02/2022: 6.2% 10/2021: 8.6% 09/2021: 9.7% Past Medical History: (Last Reviewed 07/02/22 @ 11:49 by CHADWICK Guillaume) Abnormal cervical Papanicolaou smear (2019) Allergies (~2018) Asthma BMI 45.0-49.9, adult Cervical lymphadenopathy (10/2018) related to scalp psoriasis Chicken pox (~1989) Complex cyst of right ovary Diabetes mellitus type 2, controlled, without complications Elevated liver enzymes Rheumatology believes this is related to the Stelara Essential hypertension Fibromyalgia GERD (gastroesophageal reflux disease) Irregular menstrual cycle Joint pain Nonalcoholic fatty liver disease (05/2020) Pain in right finger(s) Poorly controlled diabetes mellitus Psoriasis of scalp Severe Psoriatic arthritis Hands Type 2 diabetes mellitus Nutrition Rx: Plate Method Nutrition Diagnosis: - Excessive CHO intake r/t nutrition knowledge deficit and extended times of fasting resulting in large portinos aeb diet recall and pt report - improved - Limited access to food r/t finances aeb pt report- cont - Self monitoring deficit r/t no SMBG aeb pt report - improved - Excessive fluids intake r/t excessive thirst aeb diet recall of 4+ liters of water per day Intervention: This participant was very receptive. Provided appropriate educational handouts. Discussed the following topics: Blood sugar review and trends. Impact of food intake and meds. Benefits of food journaling Potential for reduced DM meds, to discuss with PCP Balancing carb intake, ie milk with meals Reviewed macronutrient pairing Reviewed protein impact on satiety Created SMART goals for patient self-care and success. Goals: Check out skagit gleaners- in progress try water at 11am break instead of soda- met move candy bar to afternoon if having- d/c Eat q 3-5 hours- met Check BG: FBG and or 1-2 hr pc - in progress Try food journal for 2 days per week- new Bring meter next visit-new Manage milk vs other carb intake- new Pair CHO and pro- new Follow-up: YESI LOCO follow-up in 3-4 weeks Rea Ivey RDN, CLAUDY Certified Diabetes Care and Energy Infrastructure Engineer P: [phone] Thank you for this referral
== END ==
PROVIDERS: PCP Registered Nurse Diabetes Educator; Referring Provider Registered Nurse Diabetes Educator; Visit Provider Registered Nurse Diabetes Educator
DX: E11.9 Type 2 diabetes mellitus without complications (principal); Z79.84 Long term (current) use of oral hypoglycemic drugs; Z79.85 Long-term (current) use of injectable non-insulin antidiabetic drugs; Z71.3 Dietary counseling and surveillance
CPT/HCPCS: 97803

== ENCOUNTER → 2022-07-14 08:17 | Outpatient (CLI) | payer OTHER, SELFPAY ==
--- NOTE | 2022-07-26 07:29 | DIAB.MNTFU ---
Follow-up Diabetes Medical Nutrition Therapy Assessment Name: Lupe Ruth Date: 07/14/22 Time: [id number] Dx: Type II Diabetes Lupe presents for follow-up DM visit. States she continues to not be able to obtain Trulicity. Reported glucose continued in goal. Reports some increase in appetite without GLP1 on board. Has figured out the pre auth needed with her PCP office. Plans to check pharmacy today. Instead of bringing pasta home after work, has been choosing soup. Also endorses less milk intake, more water. States she is having some soda but less than previous intake. Decreased carb portions overall, ie stuffing at dinner. After reviewing nutrient content of soup at her work, some can be quite high in carbohydrate. Veggie intake relatively low in a day. Anthropometrics: Wt: 283# last PCP visit Physical Activity: No program. Self-Monitoring Blood Glucose: Brought her meter. All recent BG documented in goal. Date Pre Post Pre Post Pre Post HS 06/26 129 136 06/27 107 06/29 102 176 138 07/06 118 07/08 126 07/11 122 07/14 129 Diabetes Medications: 4.5mg Trulicity per week 10mg Jardiance per day 1000mg Metformin BID Pertinent Labs: HgA1c: 02/2022: 6.2% 10/2021: 8.6% 09/2021: 9.7% Past Medical History: (Last Reviewed 07/02/22 @ 11:49 by CHADWICK Guillaume) Abnormal cervical Papanicolaou smear (2018) Allergies (~2017) Asthma BMI 45.0-49.9, adult Cervical lymphadenopathy (10/2018) related to scalp psoriasis Chicken pox (~1989) Complex cyst of right ovary Diabetes mellitus type 2, controlled, without complications Elevated liver enzymes Rheumatology believes this is related to the Stelara Essential hypertension Fibromyalgia GERD (gastroesophageal reflux disease) Irregular menstrual cycle Joint pain Nonalcoholic fatty liver disease (05/2020) Pain in right finger(s) Poorly controlled diabetes mellitus Psoriasis of scalp Severe Psoriatic arthritis Hands Type 2 diabetes mellitus Nutrition Rx: Plate Method; carbohydrates: 45g per meal 15-30g per snack Nutrition Diagnosis: - Excessive CHO intake r/t soup choices aeb diet recall and nutrient info online - Predicted inadequate fiber intake r/t limited vegetables aeb diet recall and pt report Intervention: This participant was very receptive. Provided appropriate educational handouts. Discussed the following topics: HgA1c measurement Blood sugar review and trends. GLP1 benefits of appetite suppressant Label reading for carbs Strategies to add more veggie Consistent energy intake to avoid excessive hunger Setting alarms to check more pc BG readings Meal planning and carb counting review Created SMART goals for patient self-care and success. Goals: Try food journal for 2 days per week- met Bring meter next visit-met Manage milk vs other carb intake- met Pair CHO and pro- met Try soup (smaller portion) and salad after work- new Or try protein bar on the way home- new Set alarms for pc reading- new Increase veggie intake- new Follow-up: YESI LOCO follow-up in 3-4 weeks Rea Ivey RDN, JHONNYES Certified Diabetes Care and Forklift Truck Operator P: [phone] Thank you for this referral
== END ==
PROVIDERS: PCP Registered Nurse Diabetes Educator; Referring Provider Registered Nurse Diabetes Educator; Visit Provider Registered Nurse Diabetes Educator
DX: E11.9 Type 2 diabetes mellitus without complications (principal); Z79.84 Long term (current) use of oral hypoglycemic drugs; Z71.3 Dietary counseling and surveillance
CPT/HCPCS: 97803

== ENCOUNTER → 2022-08-11 09:28 | Outpatient (CLI) | payer OTHER, SELFPAY ==
--- NOTE | 2022-08-23 16:56 | DIAB.MNTFU ---
Follow-up Diabetes Medical Nutrition Therapy Assessment Name: Lupe Ruth Date: 08/11/22 Time: [id number] Dx: Type II Diabetes Lupe presents for follow-up visit regarding T2DM. Reports still having difficulty obtaining Trulicity from her pharmacy. Unclear if this is just an issue with this pharmacy. In clinic today we called another local pharmacy. They did have Trulicity. Moved her rx to this pharmacy and she plans to pickle maker today. Pt reports without Trulicity, has been seeing a difference in appetite (increased).? Works Monday - Monday.?Eats take out/fast food 1-2 x/week. Eats salad/chicken and apple at work. When off work, snacking increases. Pt would like healthy snack ideas.?Also finds that she is less likely to cook on days when she wakes to dishes in the sink. Not always using her chief optometry service. Finds herself eating out more for breakfast and dinner. On work days, more structure seems to be working. choosing smaller portions of soups with carbs and more salads Diet recall: from day off B: (9:30 am) make breakfast - eggs/sausage/2 tortilla or 2 bread with coffee 12 oz with vanilla creamer OR [employer] McGriddle McMuffin sausage and OJ. Sleep 9:30 to 1:30/2:30 corduroy cutting supervisor daughter at 3:00 pm. S: (3:00 pm) crackers/cookies/popcorn. Sleep 1 hr. Sas Programmer Analyst at 4:00 pm.? D: (6-7:00 pm) [employer] OR [employer] (BG 245) OR Mom?s house (BG 154).? Grazing.? Anthropometrics: Wt: 283# last PCP visit, none today Physical Activity: No program. Self-Monitoring Blood Glucose: FBG all elevated, increased from last visit. Date Pre Post Pre Post Pre Post HS 07/25 132 07/23 172 07/22 149 07/21 139 104 07/16 145 3/ 195 184 08/10 149 179 Diabetes Medications: 4.5mg Trulicity per week (not taking due to access) 10mg Jardiance per day 1000mg Metformin BID Pertinent Labs: HgA1c: 02/2022: 6.2% 10/2021: 8.6% 09/2021: 9.7% Past Medical History: (Last Reviewed 07/02/22 @ 11:49 by CHADWICK Guillaume) Abnormal cervical Papanicolaou smear (2019) Allergies (~2017) Asthma BMI 45.0-49.9, adult Cervical lymphadenopathy (10/2018) related to scalp psoriasis Chicken pox (~1989) Complex cyst of right ovary Diabetes mellitus type 2, controlled, without complications Elevated liver enzymes Rheumatology believes this is related to the Stelara Essential hypertension Fibromyalgia GERD (gastroesophageal reflux disease) Irregular menstrual cycle Joint pain Nonalcoholic fatty liver disease (05/2020) Pain in right finger(s) Poorly controlled diabetes mellitus Psoriasis of scalp Severe Psoriatic arthritis Hands Type 2 diabetes mellitus Nutrition Rx: Plate Method; carbohydrates: 45g per meal 15-30g per snack Nutrition Diagnosis: - Excessive CHO intake r/t increased appetite and convenience of eating out aeb pt report, diet recall, and BG elevations - Excessive kcal intake r/t increased appetite in evening resulting in grazing aeb pt report Intervention: This participant was very receptive. Provided appropriate educational handouts. Discussed the following topics: Blood sugar review and trends. Impact of food intake and medications on results. Quick food options instead of eating out ways to increase success of eating at home Troubleshooting for access to Trulicity tactics to address grazing in evening Snack ideas (provided list) Created SMART goals for patient self-care and success. Goals: Try soup (smaller portion) and salad after work- met Or try protein bar on the way home- met Set alarms for pc reading- met Increase veggie intake- met Utilize chief optometry service 1-2x per week- new Try microwaved egg for quick breakfast- new corduroy cutting supervisor Trulicity today- new Set 2 specific times for evening snacks- new Follow-up: YESI LOCO follow-up in 3-4 weeks Rea Ivey RDN, CLAUDY Certified Diabetes Care and Javascript Web Developer P: [phone] Thank you for this referral
== END ==
PROVIDERS: PCP Registered Nurse Diabetes Educator; Referring Provider Registered Nurse Diabetes Educator; Visit Provider Registered Nurse Diabetes Educator
DX: E11.9 Type 2 diabetes mellitus without complications (principal); Z71.3 Dietary counseling and surveillance; Z79.84 Long term (current) use of oral hypoglycemic drugs; Z79.85 Long-term (current) use of injectable non-insulin antidiabetic drugs
CPT/HCPCS: 97803

== ENCOUNTER → 2022-09-15 10:54 | Outpatient (CLI) | payer OTHER, SELFPAY ==
--- NOTE | 2022-09-28 13:50 | DIAB.MNTFU ---
Follow-up Diabetes Medical Nutrition Therapy Assessment Name: Lupe Ruth Date: 09/15/22 Time: [id number] Dx: Type II Diabetes Provider: Isai Andrade presents for diabetes follow-up. Reports reduced fast food intake since last visit. Consistently back on Trulicity, which has made a difference in both BG and appetite. Less cravings. Sees PCP 09/21. Making food at home more often since using supervisor volunteer services. Still having soda at dinner when at work, 16oz about 4x per week. Does have diet version available, but states she is unsure why she does not choose diet. May taste different than home diet canned soda. States sometimes she goes too long without eating and this results in excessive hunger at a meal. Reduced HS snack portions ie half cup ice cream, trail mix, 2 instead of 3 bread sticks or protein bar. Setting snack times in evening. Anthropometrics: Wt: 283# 06/2022, none today Physical Activity: No program. Self-Monitoring Blood Glucose: Much improved. All FBG <120mg/dl. After meal readings ranging from 100-165mg/dl. Diabetes Medications: 4.5mg Trulicity per week 10mg Jardiance per day 1000mg Metformin BID Pertinent Labs: HgA1c: 02/2022: 6.2% 10/2021: 8.6% 09/2021: 9.7% Past Medical History: (Last Updated 09/24/22 @ 14:26 by Sae Alex MANAGER HIV) Abnormal cervical Papanicolaou smear (2018) Allergies (~2017) Asthma BMI 45.0-49.9, adult Cervical lymphadenopathy (10/2018) related to scalp psoriasis Chicken pox (~1989) Complex cyst of right ovary Diabetes mellitus type 2, controlled, without complications Dyslipidemia Elevated liver enzymes Rheumatology believes this is related to the Stelara Essential hypertension Fibromyalgia GERD (gastroesophageal reflux disease) Irregular menstrual cycle Joint pain Nonalcoholic fatty liver disease (05/2020) Pain in right finger(s) Poorly controlled diabetes mellitus Psoriasis of scalp Severe Psoriatic arthritis Hands Type 2 diabetes mellitus Nutrition Rx: Plate Method; carbohydrates: 45g per meal 15-30g per snack Nutrition Diagnosis: - Excessive CHO intake r/t increased appetite and convenience of eating out aeb pt report, diet recall, and BG elevations- improved - Excessive kcal intake r/t increased appetite in evening resulting in grazing aeb pt report - improved - Excessive CHO intake r/t beverage choices aeb diet recall - new - Excessive kcal intake r/t long period of fasting resulting in larger portions and higher appetite aeb pt report Intervention: This participant was very receptive. Provided appropriate educational handouts. Discussed the following topics: Blood sugar review and trends. Beverages choices and preferences. Finding ways to choose low CHO options she likes. Meal timing to help with appetite and portions low carb snack options Progress in BG and changes to eating out Created SMART goals for patient self-care and success. Goals: Utilize supervisor volunteer services 1-2x per week- met Try microwaved egg for quick breakfast- d/c machinist supervisor outside Trulicity today- met Set 2 specific times for evening snacks- met Choose diet soda over regular- new and/or choose water instead of second serving soda- new Try to eat q 3-4 hours- new machinist supervisor outside nuts- new machinist supervisor outside cheese and deli meat- new Follow-up: YESI LOCO follow-up in 3-4 weeks. Overall, Lupe is making great progress with lifestyle changes and BG with Trulicity now consistently onboard. Rea Ivey, YESI, CDCES Certified Diabetes Care and Clinical Trial Data Manager P: [phone] Thank you for this referral
== END ==
PROVIDERS: PCP Registered Nurse Diabetes Educator; Referring Provider Registered Nurse Diabetes Educator; Visit Provider Registered Nurse Diabetes Educator
DX: E11.9 Type 2 diabetes mellitus without complications (principal); Z79.84 Long term (current) use of oral hypoglycemic drugs; Z79.85 Long-term (current) use of injectable non-insulin antidiabetic drugs; Z71.3 Dietary counseling and surveillance
CPT/HCPCS: 97803

== ENCOUNTER → 2022-09-19 07:15 | Outpatient (CLI) | payer OTHER, SELFPAY ==
[2022-09-19 07:38] LABS: Hematocrit 36.8 % (36-46); Hemoglobin 12.5 g/dL (12.0-16.0); Mean Corpuscular HGB Conc 34.1 % (30-36); Mean Corpuscular Hemoglobin 28.4 PG (26-34); Mean Corpuscular Volume 83.5 fL (80-100); Platelet Count 374 X10^3/uL (150-400); Red Blood Cell Count 4.41 X10^6/uL (4.0-5.2); Red Cell Distribution Width 13.9 % (11.6-14.8)
[2022-09-19 07:55] LABS: Alanine Aminotransferase 18 IU/L (<35); Albumin 3.8 g/dL (3.5-5.0); Alkaline Phosphatase 68 U/L (38-126); Aspartate Aminotransferase 16 IU/L (14-36); BUN Creatinine Ratio 37.9 (6-22); Bilirubin Total 0.3 mg/dL (0.2-1.3); Blood Urea Nitrogen 22 mg/dL (7-17); Calcium 8.9 mg/dL (8.4-10.2); Carbon Dioxide 24 mmol/L (22-32); Chloride 105 mmol/L (98-107); Cholesterol 183 mg/dL (140-199); Estimated Glomerular Filt Rate > 60 mL/min (>60); Globulin 3.7 g/dL (1.7-4.1); Glucose 107 mg/dL (70-100); HDL Cholesterol 44 mg/dL (40-60); HEMOLYSIS < 15 (0-50); LDL Cholesterol Calculated 116 mg/dL (<100); Potassium 4.3 mmol/L (3.4-5.1); Sodium 137 mmol/L (137-145); Total Protein 7.5 g/dL (6.3-8.2); Triglycerides 117 mg/dL (35-150)
[2022-09-19 08:36] LABS: TSH w/ Reflex to FT4 2.46 uIU/mL (0.47-4.68)
[2022-09-19 08:47] LABS: Creatinine Urine Random 107.2 mg/dL
[2022-09-19 08:52] LABS: Microalbumi Creatinin Ratio Ur 34.5 ug/mg CR (<30); Microalbumin Urine Random 3.7 mg/dL (0-1.6)
[2022-09-20 06:05] LABS: x Labcorp Estim. Avg Glu (eAG) 146 mg/dL (.); x Labcorp Hemoglobin A1c 6.7 % (4.8-5.6)
== END ==
PROVIDERS: PCP Registered Nurse Diabetes Educator; Referring Provider Registered Nurse Diabetes Educator; Visit Provider Registered Nurse Diabetes Educator
DX: E11.9 Type 2 diabetes mellitus without complications (principal)
CPT/HCPCS: 36415; 80053; 80061; 82043; 82570; 83036; 84443; 85027

== ENCOUNTER → 2023-03-21 09:58 | Outpatient (CLI) | payer OTHER, SELFPAY ==
[2023-03-21 11:41] LABS: Cholesterol 167 mg/dL (140-199); HDL Cholesterol 41 mg/dL (40-60); LDL Cholesterol Calculated 108 mg/dL (<100); Triglycerides 92 mg/dL (35-150)
[2023-03-21 11:50] LABS: Hemoglobin A1C% w Est Avg Glu 6.3 % (4.0-6.0)
[2023-03-21 12:44] LABS: Creatinine Urine Random 140.1 mg/dL
[2023-03-21 12:48] LABS: Microalbumi Creatinin Ratio Ur 56.3 ug/mg CR (<30); Microalbumin Urine Random 7.9 mg/dL (0-1.6)
== END ==
PROVIDERS: PCP Registered Nurse Diabetes Educator; Referring Provider Registered Nurse Diabetes Educator; Visit Provider Registered Nurse Diabetes Educator
DX: E11.9 Type 2 diabetes mellitus without complications (principal); R80.9 Proteinuria, unspecified; E78.5 Hyperlipidemia, unspecified
CPT/HCPCS: 36415; 80061; 82043; 82570; 83036

== ENCOUNTER → 2023-08-20 09:31 | Outpatient (CLI) | payer OTHER, SELFPAY ==
[2023-08-20 11:29] LABS: Urine N gonorrhoeae NOT DETECTED
[2023-08-20 11:33] LABS: Urine Chlamydia NOT DETECTED
== END ==
PROVIDERS: PCP Registered Nurse Diabetes Educator; Visit Provider Nurse Practitioner Family
DX: T14.8XXA Other injury of unspecified body region, initial encounter (principal); R30.0 Dysuria; R50.9 Fever, unspecified; N94.9 Unspecified condition associated with female genital organs and menstrual cycle; N89.8 Other specified noninflammatory disorders of vagina
CPT/HCPCS: 87070; 87077; 87147; 87205; 87210; 87252; 87491; 87591

== ENCOUNTER → 2023-08-25 14:44 | Outpatient (CLI) | payer OTHER, SELFPAY ==
[2023-08-27 04:36] LABS: RPR Screen Non Reactive (Non Reactive)
[2023-08-27 11:30] LABS: HSV 2 IGG AB < 0.91 index (0.00-0.90); HSV1IGG < 0.91 index (0.00-0.90)
[2023-08-28 15:37] LABS: Hepatitis B Surface Antigen NEGATIVE s/c (NEGATIVE)
[2023-08-28 15:53] LABS: HIV 1 & 2 Ab/Ag 4th Gen Combo NEGATIVE (NEGATIVE); Hep C Virus Ab w/Reflex Quant NEGATIVE s/c (NEGATIVE)
== END ==
PROVIDERS: PCP Registered Nurse Diabetes Educator; Referring Provider Nurse Practitioner Family; Visit Provider Nurse Practitioner Family
DX: N89.8 Other specified noninflammatory disorders of vagina (principal)
CPT/HCPCS: 36415; 86592; 86695; 86696; 86803; 87340; 87389

== ENCOUNTER → 2023-09-20 07:01 | Outpatient (CLI) | payer OTHER, SELFPAY ==
[2023-09-20 07:57] LABS: Hematocrit 36.6 % (36-46); Hemoglobin 11.9 g/dL (12.0-16.0); Mean Corpuscular HGB Conc 32.6 % (30-36); Mean Corpuscular Hemoglobin 25.6 PG (26-34); Mean Corpuscular Volume 78.4 fL (80-100); Platelet Count 373 X10^3/uL (150-400); Red Blood Cell Count 4.67 X10^6/uL (4.0-5.2); Red Cell Distribution Width 17.7 % (11.6-14.8); White Blood Cell Count 8.3 X10^3/uL (4.5-11.0)
[2023-09-20 08:35] LABS: Hemoglobin A1C% w Est Avg Glu 8.2 % (4.0-6.0)
[2023-09-20 08:41] LABS: Alanine Aminotransferase 26 IU/L (<35); Albumin 3.8 g/dL (3.5-5.0); Albumin Globulin Ratio 1.2 (1.0-2.8); Alkaline Phosphatase 71 U/L (38-126); Aspartate Aminotransferase 22 IU/L (14-36); BUN Creatinine Ratio 31.9 (6-22); Bilirubin Total 0.4 mg/dL (0.2-1.3); Blood Urea Nitrogen 15 mg/dL (7-17); Calcium 9.1 mg/dL (8.4-10.2); Carbon Dioxide 27 mmol/L (22-32); Chloride 107 mmol/L (98-107); Cholesterol 181 mg/dL (140-199); Estimated Glomerular Filt Rate > 60 mL/min (>60); Globulin 3.2 g/dL (1.7-4.1); Glucose 181 mg/dL (70-100); HDL Cholesterol 49 mg/dL (40-60); HEMOLYSIS < 15 (0-50); LDL Cholesterol Calculated 108 mg/dL (<100); Potassium 4.1 mmol/L (3.4-5.1); Sodium 138 mmol/L (137-145); Triglycerides 122 mg/dL (35-150)
[2023-09-20 09:04] LABS: TSH w/ Reflex to FT4 2.22 uIU/mL (0.47-4.68)
[2023-09-20 10:45] LABS: Creatinine Urine Random 194.9 mg/dL
[2023-09-20 10:50] LABS: Microalbumi Creatinin Ratio Ur 52.8 ug/mg CR (<30); Microalbumin Urine Random 10.3 mg/dL (0-1.6)
== END ==
PROVIDERS: PCP Registered Nurse Diabetes Educator; Referring Provider Registered Nurse Diabetes Educator; Visit Provider Registered Nurse Diabetes Educator
DX: E78.5 Hyperlipidemia, unspecified (principal); E11.9 Type 2 diabetes mellitus without complications; R80.9 Proteinuria, unspecified; I10 Essential (primary) hypertension; F41.9 Anxiety disorder, unspecified
CPT/HCPCS: 36415; 80053; 80061; 82043; 82570; 83036; 84443; 85027

== ENCOUNTER → 2024-01-22 07:11 | Outpatient (CLI) | payer OTHER, SELFPAY ==
[2024-01-22 08:02] LABS: Hematocrit 39.1 % (36-46); Hemoglobin 13.3 g/dL (12.0-16.0); Mean Corpuscular Hemoglobin 27.9 PG (26-34); Mean Corpuscular Volume 82.2 fL (80-100); Platelet Count 395 X10^3/uL (150-400); Red Blood Cell Count 4.76 X10^6/uL (4.0-5.2); Red Cell Distribution Width 14.8 % (11.6-14.8); White Blood Cell Count 9.6 X10^3/uL (4.5-11.0)
[2024-01-22 08:28] LABS: HEMOLYSIS < 15 (0-50); Iron 52 ug/dL (37-170)
[2024-01-22 08:38] LABS: Alanine Aminotransferase 81 IU/L (<35); Albumin 3.7 g/dL (3.5-5.0); Albumin Globulin Ratio 1.1 (1.0-2.8); Alkaline Phosphatase 93 U/L (38-126); Aspartate Aminotransferase 46 IU/L (14-36); BUN Creatinine Ratio 33.9 (6-22); Bilirubin Total 0.5 mg/dL (0.2-1.3); Blood Urea Nitrogen 19 mg/dL (7-17); Calcium 9.6 mg/dL (8.4-10.2); Carbon Dioxide 23 mmol/L (22-32); Chloride 103 mmol/L (98-107); Cholesterol 201 mg/dL (140-199); Estimated Glomerular Filt Rate > 60 mL/min (>60); Globulin 3.3 g/dL (1.7-4.1); Glucose 144 mg/dL (70-100); HDL Cholesterol 54 mg/dL (40-60); HEMOLYSIS < 15 (0-50); LDL Cholesterol Calculated 129 mg/dL (<100); Potassium 4.6 mmol/L (3.4-5.1); Sodium 135 mmol/L (137-145); Triglycerides 88 mg/dL (35-150)
[2024-01-22 08:40] LABS: Percent Iron Saturation 13 % (15-50); Total Iron Binding Capacity 407 ug/dL (265-497); Transferrin 321 mg/dL (206-381)
[2024-01-22 09:08] LABS: Ferritin 16 ng/mL (6-137)
[2024-01-22 10:01] LABS: Hemoglobin A1C% w Est Avg Glu 8.5 % (4.0-6.0)
[2024-01-22 10:11] LABS: Creatinine Urine Random 147.46 mg/dL
[2024-01-22 10:14] LABS: Microalbumin Urine Random 5.5 mg/dL (0-1.6)
== END ==
PROVIDERS: PCP Registered Nurse Diabetes Educator; Referring Provider Registered Nurse Diabetes Educator; Visit Provider Registered Nurse Diabetes Educator
DX: E11.9 Type 2 diabetes mellitus without complications (principal); K76.0 Fatty (change of) liver, not elsewhere classified; I10 Essential (primary) hypertension; R80.9 Proteinuria, unspecified; D64.9 Anemia, unspecified
CPT/HCPCS: 36415; 80053; 80061; 82043; 82570; 82728; 83036; 83540; 83550; 85027

== ENCOUNTER → 2024-04-19 09:43 | Outpatient (CLI) | payer OTHER, SELFPAY ==
[2024-04-19 11:56] LABS: Alanine Aminotransferase 33 IU/L (<35); Albumin 3.9 g/dL (3.5-5.0); Albumin Globulin Ratio 1.2 (1.0-2.8); Alkaline Phosphatase 92 U/L (38-126); Aspartate Aminotransferase 24 IU/L (14-36); Bilirubin Total 0.6 mg/dL (0.2-1.3); Bilirubin Unconjugated 0.4 mg/dL (0.0-1.1); Cholesterol 175 mg/dL (140-199); Globulin 3.3 g/dL (1.7-4.1); HDL Cholesterol 52 mg/dL (40-60); HEMOLYSIS < 15 (0-50); LDL Cholesterol Calculated 103 mg/dL (<100); Total Protein 7.2 g/dL (6.3-8.2); Triglycerides 98 mg/dL (35-150)
[2024-04-19 11:58] LABS: Creatinine Urine Random 110.27 mg/dL
[2024-04-19 12:04] LABS: Microalbumin Urine Random 4.6 mg/dL (0-1.6)
== END ==
LOC: LAB 09:44
PROVIDERS: PCP Registered Nurse Diabetes Educator; Referring Provider Registered Nurse Diabetes Educator; Visit Provider Registered Nurse Diabetes Educator
DX: E78.5 Hyperlipidemia, unspecified (principal); E11.9 Type 2 diabetes mellitus without complications; R80.9 Proteinuria, unspecified; I10 Essential (primary) hypertension; K76.0 Fatty (change of) liver, not elsewhere classified; R74.8 Abnormal levels of other serum enzymes
CPT/HCPCS: 36415; 80061; 80076; 82043; 82570; 83036

== ENCOUNTER → 2024-07-23 07:48 | Outpatient (CLI) | payer OTHER, SELFPAY ==
[2024-07-23 08:42] LABS: Creatinine Urine Random 128.93 mg/dL
[2024-07-23 08:43] LABS: Hemoglobin A1C% w Est Avg Glu 5.3 % (4.0-6.0)
[2024-07-23 08:47] LABS: Alanine Aminotransferase 18 IU/L (<35); Albumin 3.7 g/dL (3.5-5.0); Albumin Globulin Ratio 1.1 (1.0-2.8); Alkaline Phosphatase 86 U/L (38-126); Aspartate Aminotransferase 19 IU/L (14-36); Bilirubin Total 0.5 mg/dL (0.2-1.3); Bilirubin Unconjugated 0.3 mg/dL (0.0-1.1); Globulin 3.4 g/dL (1.7-4.1); HEMOLYSIS < 15 (0-50); Total Protein 7.1 g/dL (6.3-8.2)
== END ==
PROVIDERS: PCP Registered Nurse Diabetes Educator; Referring Provider Registered Nurse Diabetes Educator; Visit Provider Registered Nurse Diabetes Educator
DX: E11.9 Type 2 diabetes mellitus without complications (principal); K76.0 Fatty (change of) liver, not elsewhere classified; R74.8 Abnormal levels of other serum enzymes
CPT/HCPCS: 36415; 80076; 82043; 82570; 83036

== ENCOUNTER → 2024-08-08 16:10 | Outpatient (CLI) | payer OTHER, SELFPAY ==
--- NOTE | 2024-08-08 16:11 | DI.MG.S_ITS ---
MM screening mammo BI: 08/08/2024. BI-RADS: 0 CLINICAL: 39-year old female for bilateral screening mammogram. Tyrer-Cuzick lifetime risk of 10.8%. No personal or first-degree family history of breast cancer. PRIOR EXAMS: None. This is a baseline mammogram. MAMMOGRAPHY TECHNIQUE: 2D and 3D (tomosynthesis) digital mammographic views obtained, with additional images as needed for full coverage. Current study was also evaluated with a Computer Aided Detection (CAD) system. DENSITY B. There are scattered areas of fibroglandular density. MAMMOGRAPHY FINDINGS Right: MLO only, Central, Middle depth: Asymmetry needing additional imaging evaluation. Left: There are no suspicious masses, calcifications, or other findings in the breast. IMPRESSION: Right (Asymmetry): MLO only, Central, Middle depth * Incomplete - asymmetry needing additional imaging evaluation. Left * No evidence of malignancy with benign findings. RECOMMENDATIONS Right: MLO only, Central, Middle depth * Further evaluation with diagnostic mammography and diagnostic ultrasound. OVERALL ASSESSMENT CATEGORY BI-RADS-0: Incomplete - Need Additional Imaging Evaluation. ELECTRONICALLY SIGNED: Janell Chaudhary M.D. on 08/09/2024 at 09:39:48 AM PT Interpreting Station ID: [id number]
== END ==
LOC: MAMMO 16:11
PROVIDERS: PCP Registered Nurse Diabetes Educator; Referring Provider Registered Nurse Diabetes Educator; Visit Provider Registered Nurse Diabetes Educator
DX: Z12.31 Encounter for screening mammogram for malignant neoplasm of breast (principal)
CPT/HCPCS: 77063; 77067

== ENCOUNTER → 2024-08-30 09:37 | Outpatient (CLI) | payer OTHER, SELFPAY ==
--- NOTE | 2024-08-30 09:38 | DI.MG.S_ITS ---
MM diagnostic mammo unilat RT: 08/30/2024. BI-RADS: 1 CLINICAL: 39-year old female for right diagnostic mammogram that is a recall from screening on 08/08/2024. The patient presents for additional evaluation of an inconclusive screening mammogram. Tyrer-Cuzick lifetime risk of 10.8%. No personal or first-degree family history of breast cancer. PRIOR EXAMS Mammogram(s): 08/08/2024. MAMMOGRAPHY TECHNIQUE: 2D and 3D (tomosynthesis) digital mammographic views obtained, with additional images as needed for full coverage. Current study was also evaluated with a Computer Aided Detection (CAD) system. DENSITY Right: B. There are scattered areas of fibroglandular density. MAMMOGRAPHY FINDINGS Right: MLO only, Central: No suspicious mass, asymmetry, microcalcification, or other abnormality seen. The questioned asymmetry is less conspicuous with additional views, and represents superimposition of normal fibroglandular tissue. IMPRESSION: Right * No evidence of malignancy. RECOMMENDATIONS Bilateral * Annual screening mammography. COMMENTS: Findings and recommendations were conveyed to the patient during today's evaluation. OVERALL ASSESSMENT CATEGORY BI-RADS-1: Negative. The [employer] recommends annual screening mammography beginning at age 40 for women with average risk of breast cancer. ELECTRONICALLY SIGNED: Janell Chaudhary M.D. on 08/30/2024 at 11:04:11 AM PT Interpreting Station ID: [id number]
== END ==
PROVIDERS: PCP Registered Nurse Diabetes Educator; Referring Provider Registered Nurse Diabetes Educator; Visit Provider Registered Nurse Diabetes Educator
DX: R92.8 Other abnormal and inconclusive findings on diagnostic imaging of breast (principal); R92.321 Mammographic fibroglandular density, right breast
CPT/HCPCS: 77065; G0279

== ENCOUNTER → 2025-01-31 16:00 | Outpatient (CLI) | payer OTHER, SELFPAY ==
[2025-01-31 17:02] LABS: Alanine Aminotransferase 12 IU/L (<35); Albumin 4.0 g/dL (3.5-5.0); Albumin Globulin Ratio 1.2 (1.0-2.8); Alkaline Phosphatase 82 U/L (38-126); Globulin 3.4 g/dL (1.7-4.1); HEMOLYSIS < 15 (0-50); Total Protein 7.4 g/dL (6.3-8.2)
== END ==
PROVIDERS: PCP Registered Nurse Diabetes Educator; Referring Provider Internal Medicine Infectious Disease; Visit Provider Internal Medicine Infectious Disease
DX: R76.12 Nonspecific reaction to cell mediated immunity measurement of gamma interferon antigen response without active tuberculosis (principal)
CPT/HCPCS: 36415; 80076

== ENCOUNTER → 2025-02-17 07:45 | Outpatient (CLI) | payer OTHER, SELFPAY ==
[2025-02-17 09:46] LABS: Alanine Aminotransferase 23 IU/L (<35); Albumin 3.9 g/dL (3.5-5.0); Albumin Globulin Ratio 1.1 (1.0-2.8); Alkaline Phosphatase 128 U/L (38-126); Globulin 3.6 g/dL (1.7-4.1); HEMOLYSIS < 15 (0-50); Total Protein 7.5 g/dL (6.3-8.2)
== END ==
PROVIDERS: PCP Registered Nurse Diabetes Educator; Referring Provider Registered Nurse Diabetes Educator; Visit Provider Internal Medicine Infectious Disease
DX: R76.12 Nonspecific reaction to cell mediated immunity measurement of gamma interferon antigen response without active tuberculosis (principal)
CPT/HCPCS: 36415; 80076

== ENCOUNTER → 2025-03-04 08:10 | Outpatient (CLI) | payer OTHER, SELFPAY ==
[2025-03-04 08:44] LABS: Alanine Aminotransferase 11 IU/L (<35); Albumin 4.0 g/dL (3.5-5.0); Albumin Globulin Ratio 1.1 (1.0-2.8); Alkaline Phosphatase 88 U/L (38-126); Globulin 3.7 g/dL (1.7-4.1); HEMOLYSIS < 15 (0-50); Total Protein 7.7 g/dL (6.3-8.2)
== END ==
PROVIDERS: PCP Registered Nurse Diabetes Educator; Referring Provider Registered Nurse Diabetes Educator; Visit Provider Internal Medicine Infectious Disease
DX: R76.12 Nonspecific reaction to cell mediated immunity measurement of gamma interferon antigen response without active tuberculosis (principal)
CPT/HCPCS: 36415; 80076

== ENCOUNTER → 2025-03-26 16:06 | Outpatient (CLI) | payer OTHER, SELFPAY ==
[2025-03-26 18:16] LABS: Alanine Aminotransferase 12 IU/L (<35); Albumin 4.1 g/dL (3.5-5.0); Albumin Globulin Ratio 1.2 (1.0-2.8); Alkaline Phosphatase 80 U/L (38-126); Globulin 3.5 g/dL (1.7-4.1); HEMOLYSIS < 15 (0-50); Total Protein 7.6 g/dL (6.3-8.2)
[2025-03-26 19:01] LABS: Vitamin B12 465 pg/mL (239-931)
== END ==
PROVIDERS: PCP Registered Nurse Diabetes Educator; Referring Provider Physician Assistant; Visit Provider Physician Assistant
DX: R76.12 Nonspecific reaction to cell mediated immunity measurement of gamma interferon antigen response without active tuberculosis (principal); G62.9 Polyneuropathy, unspecified
CPT/HCPCS: 80076; 82607

== ENCOUNTER → 2025-05-09 08:44 | Outpatient (CLI) | payer OTHER, SELFPAY ==
[2025-05-09 10:11] LABS: Alanine Aminotransferase 10 IU/L (<35); Albumin 3.7 g/dL (3.5-5.0); Albumin Globulin Ratio 1.1 (1.0-2.8); Alkaline Phosphatase 80 U/L (38-126); Globulin 3.4 g/dL (1.7-4.1); HEMOLYSIS < 15 (0-50); Total Protein 7.1 g/dL (6.3-8.2)
== END ==
PROVIDERS: PCP Registered Nurse Diabetes Educator; Referring Provider Registered Nurse Diabetes Educator; Visit Provider Internal Medicine Infectious Disease
DX: R76.12 Nonspecific reaction to cell mediated immunity measurement of gamma interferon antigen response without active tuberculosis (principal)
CPT/HCPCS: 36415; 80076